=== PATIENT | male | born 1960 | race Caucasian/White ===

== ENCOUNTER 2017-12-03 07:54 | Day surgery (SDC) | payer OTHER ==
[~2017-12-03 07:54] MED LIST: CEFAZOLIN 1 GM INJ; GLYCOPYRROLATE 0.4 MG INJ; NEOSTIGMINE 3 MG/3 ML SYRINGE
[2017-12-03] MEDS ORDERED: LACTATED RINGER'S 1,000 ML IV (09:30)
[2017-12-03] MEDS ORDERED: LIDOCAINE 1%/EPI 30 ML INJ (12:15)
[2017-12-03] MEDS ORDERED: POLYMYXIN/BACITRACIN 1L IRRIG (12:17)
[2017-12-03] MEDS ORDERED: COCAINE 4% 4 ML TOP (12:18)
[2017-12-03] MEDS: LIDOCAINE 1%/EPI 30 ML INJ INJ (12:30)
[2017-12-03] MEDS: POLYMYXIN/BACITRACIN 1L IRRIG IRR (12:30)
[2017-12-03] MEDS: COCAINE 4% 4 ML TOP (12:30)
[2017-12-03] MEDS ORDERED: ONDANSETRON 4 MG INJ (12:33)
[2017-12-03] MEDS ORDERED: ROCURONIUM 50 MG INJ (12:33)
[2017-12-03] MEDS ORDERED: PROPOFOL 20 ML (12:33)
[2017-12-03] MEDS ORDERED: METOCLOPRAMIDE 10 MG INJ (12:33)
[2017-12-03] MEDS ORDERED: MIDAZOLAM 1 MG/ML 2 ML INJ (12:33)
[2017-12-03] MEDS ORDERED: BACITRACIN/POLYMYXIN 28.35 GM OINT TOP (12:35)
[2017-12-03] MEDS ORDERED: HYDROmorphONE 1 MG/5 ML IV SYRINGE IV ×3 (13:00)
[2017-12-03] MEDS ORDERED: OXYCODONE/ACETAMINOPHEN (5/325) TAB PO (13:00)
[2017-12-03] MEDS ORDERED: ONDANSETRON 4 MG INJ IV (13:00)
[2017-12-03] MEDS: BACITRACIN/POLYMYXIN 0.9 GM OINT TOP (13:20)
== END 2017-12-03 15:35 | disposition home or self-care (01) ==
LOC: SDS 07:54
DX: J32.9 Chronic sinusitis, unspecified (principal); J30.9 Allergic rhinitis, unspecified; J32.0 Chronic maxillary sinusitis
CPT/HCPCS: 31256